=== PATIENT | male | born 1955 | race Caucasian/White ===

== ENCOUNTER 2017-03-26 15:05 | Emergency (ER) | payer OTHER ==
[~2017-03-26] VITALS: Ht 182.9 cm; Wt 109.0 kg
[2017-03-26 15:05] VITALS: BP 160/87; PULSE 78; RESP 16; TEMP 98.5; O2SAT 97
[2017-03-26] MEDS ORDERED: DICL75TA PO (16:52)
[2017-03-26] MEDS ORDERED: HYDR-3516 PO (16:52)
[2017-03-26] MEDS ORDERED: ACETAMINOPHEN/HYDROcodone 325 MG/5 MG TAB PO ONE (17:00)
[2017-03-26] MEDS ORDERED: KETOROLAC TROMETHAMINE 60 MG/2 ML (IM) VIAL IM ONE (17:00)
--- NOTE | 2017-03-26 17:08 | PD ---
HPI Chief Complaint: Injury Time Seen by Provider: 16:34 Travel History International Travel<30 days: No Contact w/Intl Traveler<30days: No Traveled to known affect area: No History of Present Illness HPI 61-year-old male that presents to the ED for evaluation of injury to his left shoulder. Patient was working today when he was lifting a heavy object and started having pain on his left shoulder. His been having sharp pain since. This happened today in the morning will working. This is worker's comp. Per patient pain is 8 out of 10. It's worse with movement especially with lifting the arm. Denies any prior injuries. Denies any surgeries. No falls or trauma to it. Able to move it well with a lot of difficulty secondary to pain. Has taken some OTC meds with minimal relief. No other medical issues at this time. [facility] Social History Alcohol Use: No Tobacco Use: No Substance Use: No Allergies-Medications (Allergen,Severity, Reaction): Coded Allergies: No Known Allergies (Unverified , 03/26/17) Reported Meds & Prescriptions Reported Meds & Active Scripts Active Hydrocodone-Acetaminophen 5-325 mg Tab 1 Tab PO Q4H PRN Diclofenac Sodium DR (Diclofenac Sodium) 75 Mg Tabdr 75 Mg PO BID PRN Review of Systems Except as stated in HPI: all other systems reviewed are Neg Physical Exam Narrative GENERAL: SKIN: Warm and dry. HEAD: Atraumatic. Normocephalic. EYES: Pupils equal and round. No scleral icterus. No injection or drainage. ENT: No nasal bleeding or discharge. Mucous membranes pink and moist. NECK: Trachea midline. No JVD. CARDIOVASCULAR: Regular rate and rhythm. RESPIRATORY: No accessory muscle use. Clear to auscultation. Breath sounds equal bilaterally. GASTROINTESTINAL: Abdomen soft, non-tender, nondistended. Hepatic and splenic margins not palpable. MUSCULOSKELETAL: Extremities without clubbing, cyanosis, or edema. No obvious deformities. Full range of motion of the upper extremities with exception of the left upper extremity where he has pain with abduction as well as with internal and external rotation. No obvious deformity noted. No bruising. 2+ pulses bilaterally. Neurovascular intact. No lumbar, thoracic, cervical spine tenderness to palpation. NEUROLOGICAL: Awake and alert. No obvious cranial nerve deficits. Motor grossly within normal limits. Five out of 5 muscle strength in the arms and legs. Normal speech. PSYCHIATRIC: Appropriate mood and affect; insight and judgment normal. Data Data Last Documented VS Vital Signs Date Time Temp Pulse Resp B/P (MAP) Pulse Ox O2 Delivery O2 Flow Rate FiO2 03/26/17 15:05 98.5 78 16 160/87 (111) 97 Room Air Orders Orders Shoulder, Complete (>2vws) (03/26/17 ) Splint Or Brace Apply/Monitor (03/26/17 16:50) Ketorolac Inj (Toradol Inj) (03/26/17 17:00) Acetamin-Hydrocod 325-5 Mg (Wallace 5-325 (03/26/17 17:00) Radiology Film Requests (03/26/17 ) Ed Discharge Order (03/26/17 17:10) Sling Cradle Arm (03/26/17 ) MDM Medical Decision Making Medical Screen Exam Complete: Yes Emergency Medical Condition: Yes Medical Record Reviewed: Yes Interpretation(s) X-ray of the left shoulder read by me and attending did not show no sign of bony injury or deformity. Differential Diagnosis Fracture versus sprain versus strain versus bruise versus contusion Narrative Course 61-year-old male that presents to the ED for evaluation of left shoulder pain. Patient was properly examined and was found to have signs and symptoms consistent with muscle skeletal pain. X-ray was done and was negative for acute disease. Read by me and attending. Patient is able to move the shoulder. Do not believe this is a rotator cuff tear. Does appear to be likely a tendinitis versus strain. I do recommend sling, rest of the left shoulder, prescriptions for diclofenac sodium and Lortab. Patient was given prescriptions for pain medication as well. Told to follow closely with worker' s comp as well as possible orthopedic doctor if this continues to be an issue as this will likely given missions for the next couple of weeks. He agrees and understands this plan. Follow with PCP. Worker's comp was filled by me. See ED worsening symptoms. While I was taking care of another patient I was told by ED nurse that patient refused sling and left without his CD. Per ED nurse he seemed upset for being here too long and by the time I was done with taking care of another patient patient had already left. Diagnosis Primary Impression: Left shoulder strain Qualified Codes: S46.912A - Strain of unspecified muscle, fascia and tendon at shoulder and upper arm level, left arm, initial encounter Patient Instructions: General Instructions, Narcotic given in the ED Additional Instructions: Take medications as prescribed. Follow-up with PCP. See ED for any worsening symptoms. Do not drink or drive while taking pain medication. Apply ice or heat as needed for pain Med/Other Pt SpecificInfo: Prescription(s) given Scripts Hydrocodone-Acetaminophen (Hydrocodone-Acetaminophen) 5-325 mg Tab 1 TAB PO Q4H Y for PAIN, #12 TAB 0 Refills Prov: Isaias Lay MD 03/26/[address] (Diclofenac Sodium DR) 75 Mg Tabdr 75 MG PO BID Y for PAIN SCALE 1 TO 10, #20 TAB 0 Refills Prov: Isaias Lay MD 03/26/17 Disposition: 01 DISCHARGE HOME Condition: Stable Charlie Patel Mar 26, 2017 17:08
--- NOTE | 2017-03-26 17:40 | RADRPT ---
EXAM DATE/TIME: 03/26/2017 15:33 [facility] COMPARISON: No previous studies available for comparison. INDICATIONS : Left shoulder pain after lifting heavy object. MEDICAL HISTORY : None. SURGICAL HISTORY : None. ENCOUNTER: Initial ACUITY: 1 day PAIN SCORE: 10/10 LOCATION: Left shoulder joint radiating to arm. FINDINGS: Multiple view examination of the left shoulder demonstrates no evidence of fracture or dislocation. The glenohumeral and acromioclavicular joints are maintained. Degenerative changes at the AC joint T here is normal range of motion between internal and external rotation. Bony mineralization is normal . CONCLUSION: AC joint degenerative changes, negative for fracture dislocation Rene Pollard MD FACR on March 26, 2017 at 17:37 Board Certified Radiologist. This report was verified electronically.
== END 2017-03-26 17:42 | disposition home or self-care (01) ==
LOC: NEPK 15:05
DX: S46.912A Strain of unspecified muscle, fascia and tendon at shoulder and upper arm level, left arm, initial encounter (principal); X50.0XXA Overexertion from strenuous movement or load, initial encounter; Y99.0 Civilian activity done for income or pay
CPT/HCPCS: 73030; 99283; J1885